=== PATIENT | male | born 1970 | race Two or more races ===

== ENCOUNTER 2023-11-21 14:07 | Emergency (ER) | payer BC, OTHER ==
[~2023-11-21] VITALS: Ht 167.6 cm; Wt 77.1 kg
[2023-11-21 15:31] VITALS: BP 133/88; TEMP 98; O2SAT 96
[2023-11-21] MEDS ORDERED: POLY17PO4 PO (17:23)
[2023-11-21] MEDS ORDERED: DOCU-141 PO (17:23)
[2023-11-21] MEDS ORDERED: LIDOCAINE/PRILOCAINE (5GM) 5 GM TUBE TP ONE (17:32)
[2023-11-21] MEDS ORDERED: LIDOCAINE 2% JEL UROJET 10 ML MM ONE (17:36)
[2023-11-21] MEDS: LIDOCAINE 2% JEL 5 ML TUBE MC ONE (17:42)
== END 2023-11-21 17:48 | disposition home or self-care (01) ==
LOC: ER 14:07
DX: K62.89 Other specified diseases of anus and rectum (principal)
CPT/HCPCS: 99282; J3490